=== PATIENT | male | born 1955 | race Caucasian/White ===

== ENCOUNTER → 2019-12-11 | Outpatient (CLI) | payer MEDICARE ==
--- NOTE | 2019-12-14 20:18 | ONC ---
[address] [address] RADIATION ONCOLOGY NOTE Name: ANDREIA JOSEPH Room: [facility]#: [id number] Admission: 12/11/19 Attend Phys: Luis Simmons MD Discharge: Date of : 53 Report #: [id number] THIS REPORT FOR: //name// CC: Luis Bass DATE OF SERVICE: 12/11/2019 [facility] RADIATION ONCOLOGY PROCEDURE NOTE REFERRING PHYSICIANS: Include: 1. Dr. Lucas Solano. 2. Dr. Foley. 3. Dr. Neelam Bass. PRIMARY SITE AND HISTOPATHOLOGY: The patient had resection of a melanoma. PROCEDURE: Nasopharyngolaryngoscopy. DESCRIPTION OF PROCEDURE: On nasopharyngolaryngoscopy, after application of 2% viscous lidocaine orally and 2% viscous lidocaine to the right nostril, there were no visible lesions in the nasopharynx or posterior pharynx. The true vocal cords were normally mobile with no visible lesions. There was no evidence of any lesions seen on nasopharyngolaryngoscopy. Thank you for allowing me to participate in the care of this patient. <ELECTRONICALLY SIGNED> By: Luis Simmons MD 12/14/192017 06 [id number] jose Sims
--- NOTE | 2019-12-14 20:33 | CON ---
[address] [address] CONSULTATION Name: ANDREIA JOSEPH Room: [facility].#: [id number] Admission: 12/11/19 Attend Phys: Luis Simmons MD Discharge: Date of : 53 Report #: [id number] THIS REPORT FOR: //name// cc: PAL[place] - No family physician/PCP FAM - No family physician/PCP ~ THIS REPORT FOR: //name// CC: Luis Solano MD [facility] DATE OF SERVICE: 12/11/2019 RADIATION ONCOLOGY CONSULT NOTE REFERRING PHYSICIANS: Include Dr. Lucas Solano, Dr. Foley and Neelam Bass. PRIMARY SITE AND HISTOPATHOLOGY: The patient had a melanoma of the right oriental orthodox with multiple lymph nodes involved and that was resected. He first noted an area that was getting larger around 05/2019 or 06/2019. He had a biopsy and that showed malignant melanoma, and the biopsy was on 07/22/2019. That showed a Breslow's depth of 5.5 mm. The tumor size was 1.8 cm. This was a lentigo maligna melanoma. He then underwent a wide local excision on 09/07/2019, which revealed a residual melanoma with a thickness of 2.3 mm. There was 1 lymph node that was positive for metastatic melanoma and that had involvement that measured 0.2 cm and he had a second lymph node in the right parotid region that was positive for melanoma that measured 0.7 cm and that had extracapsular extension. The patient then went on to have a resection on 10/20/2019 and that showed he had level 1B lymph nodes resected, 3 of those were not involved with cancer and then he had another 27 level 2 and 3 right lymph nodes removed and 27 were not involved with cancer. He also had another deep parotid lymph node removed and that was not involved with cancer. The patient was started with treatment with Dr. Solano and the patient is receiving Keytruda and he was referred for consideration for possible adjuvant radiation therapy. PAST MEDICAL HISTORY AND PAST SURGICAL HISTORY: The patient has a history of colon polyps. FAMILY HISTORY: Mother had gastric cancer [place] [address] CONSULTATION Name: ANDREIA JOSEPH Room: [facility]#: [id number] Admission: 12/11/19 Attend Phys: Luis Simmons MD Discharge: Date of : 53 Report #: [id number] SOCIAL HISTORY: The patient is retired. Ethanol: he does not drink alcohol containing drinks. Cigarettes: he does not smoke cigarettes. REVIEW OF SYSTEMS: GENERAL: The patient does not drink alcohol containing beverages. SKIN: The patient has had moles removed in the past. LYMPH NODES: He had involved lymph nodes that were resected as noted in the history of present illness. ENDOCRINE: He denied having any hot or cold intolerance. HEMATOLOGY AND IMMUNOLOGY: The patient denied having anemia. MUSCULOSKELETAL: He has arthritis. HEAD AND NECK: The patient has had a sore throat. RESPIRATORY: The patient denied having shortness of breath or cough. CARDIOVASCULAR: The patient denied having palpitations or chest pain. GASTROINTESTINAL: He denied having nausea or vomiting. NEUROLOGIC: He denied having any focal weakness. PHYSICAL EXAMINATION: VITAL SIGNS: The patient's height was 5 feet 11 inches, weight 169.2 pounds, blood pressure 115/73, pulse 57, temperature 98.5 degrees Fahrenheit, and oxygen saturation 100%. LYMPH NOES: He had no palpable cervical or supraclavicular lymphadenopathy. EYES: Extraocular movement was intact. Pupils were equal, round, and reactive to light and accommodation. HEAD, EARS, NOSE AND THROAT: Mouth had no visible lesions. He does have well-healed surgical scars in the right scalp and neck area. HEART: had a regular rate and rhythm without murmur. LUNGS: were clear to auscultation. ABDOMEN: Not tender. Spleen was not palpable. Liver was at the costal margin. EXTREMITIES: No clubbing, cyanosis or edema. NEUROLOGIC: Cranial nerves II to XII were intact. Sensation was intact. He had 5/5 strength in his extremities. LABORATORY DATA: From 11/25/2019, hemoglobin 13.3, platelets 146,000, and white blood cells 4.2. Sodium 144, potassium 5.4, BUN 19, and creatinine 0.81. RADIOLOGIC DATA: Head MRI from 09/18/2019 showed no evidence of intracranial metastatic disease and a PET scan from 09/17/2019 revealed a nodular area along the superficial right parotid gland. PROCEDURE: Nasopharyngolaryngoscopy. The patient felt that he had some mild dysphagia, so he underwent nasopharyngolaryngoscopy. 2% viscous lidocaine was given orally and also via the right nostril and there [place] [address] CONSULTATION Name: ANDREIA JOSEPH Room: [facility]#: [id number] Admission: 12/11/19 Attend Phys: Luis Simmons MD Discharge: Date of : 53 Report #: [id number] lesions in the nasopharynx or posterior oropharynx. The true vocal cords were normally mobile bilaterally without any visible lesions. ASSESSMENT AND PLAN: The patient underwent resection of a melanoma with 2 lymph nodes involved with melanoma and one had extracapsular extension. He is getting Keytruda from Dr. Solano. He was offered radiation therapy to help decrease the chance of recurrent disease in the head and neck, this is based on studies such as the [facility] Radiation Oncology Group Study 9606. The article about that study noted a series where Stefania was the author which showed that local recurrence was more likely in a patient with multiple lymph node involvement, and the recurrence rate can be anywhere from 15% to 33% after surgical resection alone and the recurrence rate with extra jordon spread was about 28%. In that study they found that patients who received radiation therapy had an in field relapse rate of only 6.8%. So, the risks, benefits, and logistics of radiation therapy were explained to the patient in detail and the patient gave his witnessed, informed consent to proceed with radiation therapy. Thank you very much for this consult. <ELECTRONICALLY SIGNED> By: Luis Simmons MD 12/14/19 2033 [id number] Simmons MD /nt
== END ==
LOC: M.RTH 09:00
PROVIDERS: ATTEND Radiology Radiation Oncology
DX: C43.9 Malignant melanoma of skin, unspecified (principal)